=== PATIENT | female | born 1960 | race Caucasian/White ===

== ENCOUNTER → 2018-01-12 11:10 | Outpatient (CLI) | payer OTHER, MEDICAID, SELFPAY ==
--- NOTE | 2018-01-12 | DI.MG.S_ITS ---
BILATERAL DIGITAL SCREENING MAMMOGRAM 3D/2D WITH CAD: 01/12/2018 CLINICAL: Routine screening. Family history of breast cancer. Comparison is made to exams dated: 07/23/2017 mammogram, 05/26/2015 mammogram, and 04/11/2014 mammogram - [facility]. There are scattered fibroglandular elements in both breasts. Current study was also evaluated with a Computer Aided Detection (CAD) system. No significant masses, calcifications, or other findings are seen in either breast. There has been no significant interval change. IMPRESSION: NEGATIVE There is no mammographic evidence of malignancy. A 1 year screening mammogram is recommended. This exam was interpreted at Station ID: [id number]. NOTE: For mammograms, a report in lay terms will be sent to the patient. Approximately 15% of breast malignancies will not be visualized mammographically. In the management of a palpable breast mass, a negative mammogram must not discourage biopsy of a clinically suspicious lesion. Electronically Signed By: Javed paris/robb:01/12/2018 16:15:42 letter sent: Normal Exam ACR BI-RADS Category 1: Negative 3341F
== END ==
PROVIDERS: PCP Nurse Practitioner Family; Visit Provider Nurse Practitioner Family
DX: Z12.31 Encounter for screening mammogram for malignant neoplasm of breast (principal); Z80.3 Family history of malignant neoplasm of breast
CPT/HCPCS: 77063; 77067

== ENCOUNTER → 2018-07-28 13:45 | Outpatient (CLI) | payer OTHER, MEDICAID, SELFPAY ==
--- NOTE | 2018-07-28 | DI.ECHO.S_ITS ---
[facility] +---------+ : : [address] : : : : [id number] : : : : Phone: [phone]+ Echocardiogram Report + + :Name: AMBER MÁRQUEZ Study Date: 07/28/2018 Height: 62 in : :[facility] Exam Location: [place] Weight: 239 lb : : Gender: Female BSA: 2.1 m2 : :: 1960 Age: 58 yrs BP: 142/82 mmHg: :Reason For Study: HALL : : Performed By: Gabriel Coreas : :Referring: ANNITA JIMENEZ : + + Interpretation Summary The left ventricle is normal in size. The ejection fraction is estimated to be 65-70%. The right ventricle is normal in size and function. No significant valvular pathology seen. The IVC is of normal diameter and collapses greater than 50% with a sniff. This suggests a low right atrial pressure of 3 mm Hg. Procedure: A two-dimensional transthoracic echocardiogram with color flow and Doppler was performed. The study quality was technically difficult. There is no prior echocardiogram noted for this patient. The patient was in normal sinus rhythm during the exam. Left Ventricle: The left ventricle is normal in size. Proximal septal thickening is noted. There is no echo evidence for significant left ventricular outflow tract obstruction. There is no thrombus. The ejection fraction is estimated to be 65-70%. There are no focal wall motion abnormalities. Diastolic parameters suggest a relaxation abnormality of the left ventricle, consistent with probable normal filling pressures. Right Ventricle: The right ventricle is normal in size and function. Atria: Both atria are normal in size. The interatrial septum is intact with no evidence for an atrial septal defect. Mitral Valve: The mitral valve is normal in structure and function. There is no mitral regurgitation noted. Aortic Valve: The aortic valve is trileaflet. The aortic valve opens well. There is no aortic valve stenosis. No aortic regurgitation is present. Tricuspid Valve: The tricuspid valve is normal in structure and function. There is trace tricuspid regurgitation. Pulmonary artery pressures cannot be estimated because of the lack of a measurable TR jet velocity. Pulmonic Valve: The pulmonic valve is not well seen, but is grossly normal. There is trace pulmonic regurgitation. Great Vessels: The aortic root is normal size. The dimensions of the ascending aorta are normal. The pulmonary artery is normal size. The IVC is of normal diameter and collapses greater than 50% with a sniff. This suggests a low right atrial pressure of 3 mm Hg. Pericardium/ Pleura There is no pericardial effusion. There is an anterior echo-free space consistent with a fat pad. There is no pleural effusion. MMode/2D Measurements & Calculations LVIDd: 5.3 cm LVOT diam: 2.1 cm LVIDs: 2.7 cm Ao root diam: 3.0 cm FS: 48.0 % Aortic Jxn: 2.7 cm EPSS: 0.54 cm asc Aorta Diam: 3.1 cm IVSd: 0.93 cm LVPWd: 0.90 cm LV bernabe. diameter/BSA (cm/m^2): 2.6 LV sys. diameter/BSA (cm/m^2): 1.3 LA dimension: 3.9 cm RA long axis: 4.5 cm LA A2 area: 18.1 cm2 RA area: 13.6 cm2 LA A4 area: 17.3 cm2 RA vol: 34.9 ml LA length (vol): 4.8 cm RA : 16.9 ml/m2 LA vol: 55.2 ml IVC diam: 1.2 cm LA vol index: 26.8 ml/m2 Doppler Measurements & Calculations Ao V2 max: 182.2 cm/sec LVOT Max Toi: 110.5 cm/sec Ao V2 mean: 117.7 cm/sec LV V1 max P.9 mmHg Ao max P.3 mmHg LV V1 VTI: 23.7 cm Ao mean P.4 mmHg DEDE(I,D): 2.5 cm2 Ao V2 VTI: 31.3 cm DEDE(V,D): 2.0 cm2 sev ratio: 0.76 DEDE indexed to BSA (cm^2/m^2): 1.2 MV E max toi: 55.6 cm/sec PA V2 max: 108.2 cm/sec MV A max toi: 71.7 cm/sec PA V2 mean: 70.5 cm/sec MV E/A: 0.78 PA mean P.3 mmHg Med Peak E' Toi: 4.5 cm/sec PA pr(Accel): 29.1 mmHg E/E' med: 12.3 PA Accel Time: 0.09 sec Lat Peak E' Toi: 7.4 cm/sec E/E' lat: 7.5 E/e' average: 9.9 MV dec time: 0.26 sec SV(LVOT): 78.5 ml Reading Physician:CONSTANTIN
== END ==
PROVIDERS: PCP Nurse Practitioner Family; Visit Provider Nurse Practitioner Family
DX: R06.00 Dyspnea, unspecified (principal)
CPT/HCPCS: 93306

== ENCOUNTER → 2018-09-15 13:43 | Outpatient (CLI) | payer OTHER, MEDICAID, SELFPAY ==
--- NOTE | 2018-09-15 15:02 | PM.TREADMILL ---
Cardiac Stress Test Report Referral & Results Date Patient Seen: 09/15/18 Requesting provider: Bernie Ortiz Indication: Dyspnea Rest ECG: Unremarkable Procedure Note: Today following both written and verbal informed consent the patient was exercised according to a standard Nick protocol patient went for a total of 5 min 5 sec achieving a maximum heart rate of 150 a maximum systolic blood pressure of 200. This is approximately 7.0 METS. Exercise was terminated at this point because of dyspnea and inability patient to continue because of fatigue. Patient was also given Cardiolite through a previously started Hep-Lock IV by the nuclear medicine medical director approximately 1 minute prior to the cessation of exercise. No ST-T segment changes noted Normal heart rate and blood pressure response to exercise Oxygen saturation was 93-94% throughout Occasional PVC in recovery Functional aerobic impairment rated 12% on the sedentary scale Impression: No evidence of ischemia Somewhat limited exercise capacity Please see perfusion imaging which will be reported separately for further details regarding possible ischemia Please note: Actual ECG tracings can be found in the PACS system.
--- NOTE | 2018-09-16 15:16 | DI.NM.S_ITS ---
DATE OF SERVICE: 09/15/2018 PROCEDURE: Exercise perfusion study. INDICATIONS: Dyspnea with exertion with underlying hypertension, diabetes mellitus. RADIOPHARMACEUTICAL: 27.0 mCi technetium-99m Myoview IV was injected at stress and 24.6 mCi technetium-99m Myoview IV was injected at rest. CARDIAC STRESS: Patient underwent exercise perfusion study under the supervision of an attending staff. She walked on Nick protocol for 5 minutes 05 seconds achieved 90% of target heart rate. Resting blood pressure 126/80. Peak blood pressure 200/90 suggestive of hypertensive blood pressure response. Baseline EKG revealed sinus rhythm. There were low-voltage complexes in chest leads. During stress, artifacts seen; however, no ischemic EKG changes seen. There were some occasional PVCs which were isolated. No ventricular tachycardia. Patient had dyspnea and fatigue during exercise. RAW DATA: Significant breast shadow was seen. Patient's weight is 239 pounds. GATED STUDY: Stress LV ejection fraction 86%. Left ventricular function appears to be hyperdynamic. No obvious wall motion abnormalities. No transient ischemic dilatation. Resting end-diastolic volume is 90 mL. TID ratio is 0.97, which is within normal limits. Lung/heart ratio is 0.32, which is within normal limits. MYOCARDIAL PERFUSION SCAN: Stress supine, resting supine, and stress prone images were compared to each other. Stress supine and resting supine images revealed very small-sized minimally decreased perfusion of distal anterior wall, which appears to be improved in prone images. No convincing ischemia. CONCLUSION: I will call this study likely a normal myocardial perfusion study with evidence of breast tissue attenuation artifact which gets improved during prone images. Hyperdynamic left ventricular (LV) function. Hypertensive blood pressure response. Functional aerobic impairment positive +12%. No significant sustained arrhythmias other than some isolated premature ventricular contractions (PVCs) during stress. As far as perfusion scan is concerned, this is a low-risk myocardial perfusion scan. Joanne Broussard - ELLY/mercedes/ doc#: [id number]/job#: [id number] dd: 09/16/2018 12:29:00 dt: 09/16/2018 15:05:00 DICTATING MD/COPIES TO: Vel Cota MD COPIES MNE: LENARD
== END ==
PROVIDERS: PCP Nurse Practitioner Family; Visit Provider Nurse Practitioner Family
DX: R06.09 Other forms of dyspnea (principal); E11.9 Type 2 diabetes mellitus without complications; I10 Essential (primary) hypertension
CPT/HCPCS: 78452; 93016; 93017; 93018; A9502

== ENCOUNTER → 2018-09-16 10:36 | Outpatient (CLI) | payer OTHER, MEDICAID, SELFPAY | PROVIDERS: PCP Nurse Practitioner Family; Visit Provider Nurse Practitioner Family | DX: R06.00 Dyspnea, unspecified (principal); Z53.9 Procedure and treatment not carried out, unspecified reason ==